=== PATIENT | female | born 1940 | race Caucasian/White ===

== ENCOUNTER → 2017-10-19 | Outpatient (CLI) | payer MEDICARE ==
[~2017-10-19] MED LIST: CALC-136 PO; CITA20TA5 PO; FEXO1TAB25 PO; FURO-93 PO; HYDR12.53 PO; LEVO50TA5 PO; LOSA100T6 PO; OMEP20TA62 PO; POTA99TA14 PO; UBID100C41 PO
== END | disposition home or self-care (01) ==
LOC: CVU 08:33
PROVIDERS: ATTEND Internal Medicine Cardiovascular Disease
DX: I08.1 Rheumatic disorders of both mitral and tricuspid valves (principal); I10 Essential (primary) hypertension
CPT/HCPCS: 0399T; 93306